=== PATIENT | male | born 1985 | race Caucasian/White ===

== ENCOUNTER → 2020-12-17 11:46 | Outpatient (CLI) | payer OTHER, SELFPAY ==
--- NOTE | ~2020-12-17 | XR_ITS ---
XR thoracic spine 2V DATE: 12/17/2020 12:04 INDICATION: Mid thoracic pain for 2 years TECHNIQUE: Standing AP, lateral and swimmer views COMPARISON: None FINDINGS: No fracture or dislocation or bone destruction. The thoracic pedicles are intact. There is minimal dextroscoliosis of the thoracic spine. No paraspinal soft tissue thickening. IMPRESSION: Minimal dextroscoliosis Reviewed, dictated and finalized at location A. IMPRESSION: Minimal dextroscoliosis
== END ==
DX: M54.6 Pain in thoracic spine (principal)
CPT/HCPCS: 72070